=== PATIENT | male | born 1955 | race American Indian/Alaskan Native ===

== ENCOUNTER 2017-08-13 21:09 | Emergency (ER) | payer MEDICAID ==
[2017-08-13 22:51] LABS: Basophils % (Auto) 0.7 % (0.0-1.8); Eosinophils % (Auto) 0.6 % (0.0-4.3); Hematocrit 45.3 % (35.5-45.6); Hemoglobin 15.4 gm/dl (11.8-15.2); Lymphocytes # (Auto) 1.5 K/mm3 (1.2-5.4); Mean Corpuscular HGB Conc 34 % (32-34); Mean Corpuscular Hemoglobin 31 pg (28-32); Mean Corpuscular Volume 93 fl (84-94); Monocytes # (Auto) 0.3 K/mm3 (0.0-0.8); Platelet Count 397 K/mm3 (140-440); Red Cell Distribution Width 12.5 % (13.2-15.2)
[2017-08-13 22:58] LABS: BUN/Creatinine Ratio 10; Blood Urea Nitrogen 9 mg/dL (9-20); Calcium 9.1 mg/dL (8.4-10.2); Hemolysis Index 1
[2017-08-14 00:08] LABS: Bilirubin,Urine NEG (Negative); Blood,Urine NEG (Negative); Color,Urine Yellow (Yellow); Hyaline Casts,Urine 1 /LPF; Mucus,Urine FEW /HPF; Protein,Urine <15 mg/dL mg/dL (Negative); WBC,Urine < 1.0 /HPF (0.0-6.0)
[2017-08-14 00:24] LABS: Amphetamine Screen,Urine PRESUMPTIVE NEGATIVE; Benzodiazepines Screen,Urine PRESUMPTIVE NEGATIVE; Cannabinoid Screen,Urine PRESUMPTIVE NEGATIVE; Methadone Screen,Urine PRESUMPTIVE NEGATIVE; Opiate Screen,Urine PRESUMPTIVE NEGATIVE
[2017-08-14 00:40] LABS: Cocaine Screen,Urine PRESUMPTIVE POSITIVE
[2017-08-14 07:49] VITALS: BP 110/74
== END 2017-08-14 12:40 | disposition left against medical advice (07) ==
LOC: ED 21:09
DX: R20.0 Anesthesia of skin (principal); Z53.21 Procedure and treatment not carried out due to patient leaving prior to being seen by health care provider; Z79.899 Other long term (current) drug therapy
CPT/HCPCS: 36415; 80048; 80307; 81001; 85025; 93005; 93010; G0480; 80320

== ENCOUNTER 2017-08-14 13:33 | Emergency (ER) | payer MEDICAID ==
[2017-08-14] MEDS ORDERED: NACL 0.9% 1000 ML 1,000 ML IV ONE (17:53)
--- NOTE | 2017-08-14 17:55 | Emergency Department Report ---
Blank Doc - Documentation Documentation: Patient is a 62-year-old Male who was here yesterday for psych placement and not feeling well but eloped. Patient denies any homicidal suicidal ideations. Patient does state that he has a lot of nervousness as well as a numb sensation all over his body particularly his head. Patient states he's had a cough and loose stools for approximately week. The patient denies any vomiting fever. Patient states that he just feels like pins and needle sensation in throughout his body. Patient blood pressure was slightly low possibly from some dehydration secondary to his diarrhea. Patient also was positive for cocaine yesterday which may be a contributing factor. The patient will be moved to the main for further evaluation to
[2017-08-14 18:22] LABS: Basophils % (Auto) 0.7 % (0.0-1.8); Eosinophils # (Auto) 0.1 K/mm3 (0.0-0.4); Eosinophils % (Auto) 1.9 % (0.0-4.3); Hematocrit 41.7 % (35.5-45.6); Hemoglobin 14.2 gm/dl (11.8-15.2); Lymphocytes # (Auto) 1.6 K/mm3 (1.2-5.4); Mean Corpuscular HGB Conc 34 % (32-34); Mean Corpuscular Hemoglobin 31 pg (28-32); Mean Corpuscular Volume 93 fl (84-94); Monocytes # (Auto) 0.3 K/mm3 (0.0-0.8); Monocytes % (Auto) 5.9 % (0.0-7.3); Platelet Count 401 K/mm3 (140-440); Red Blood Count 4.51 M/mm3 (3.65-5.03); Red Cell Distribution Width 12.8 % (13.2-15.2)
[2017-08-14 18:41] LABS: BUN/Creatinine Ratio 11; Blood Urea Nitrogen 8 mg/dL (9-20); Calcium 9.1 mg/dL (8.4-10.2); Hemolysis Index 99
[2017-08-14] MEDS ORDERED: BENADRYL IV ONE (18:41)
[2017-08-14] MEDS ORDERED: REGLAN IV ONE (18:41)
[2017-08-14 18:43] LABS: Alanine Aminotransferase 15 units/L (7-56); Albumin 3.6 g/dL (3.9-5); Bilirubin,Direct < 0.2 mg/dL (0-0.2)
--- NOTE | 2017-08-14 18:48 | Emergency Department Report ---
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 Is also having a left-sided headache for the past 2 days and requesting pain medication. Patient was here yesterday to be seen prior to M.D. evaluation. Cocaine was positive at that time. Patient also states she was recently seen at [facility] and discharged. Patient states he is not taking any medications including aspirin. He admits to cocaine use 2 days ago. Patient apparently having diarrhea and productive cough without fever. Patient glucose was also elevated and yesterday's labs and he states he is a borderline diabetic and does not take medication - Related Data Previous Rx's Medication Instructions Recorded Last Taken Type Azithromycin [Zithromax Z-CHRYSTAL] 1 dose PO DAILY 5 Days tab 08/15/17 Unknown Rx Gabapentin [Neurontin] 300 mg PO Q8HR #90 capsule 08/15/17 Unknown Rx Allergies Allergy/AdvReac Type Severity Reaction Status Date / Time ibuprofen [From Motrin] AdvReac Nausea Verified 08/13/17 22:02 ED Review of Systems ROS: Stated complaint: NUMBNESS IN FINGERS/DRUG ADDICTION Other details as noted in HPI Comment: All other systems reviewed and negative ED Past Medical Hx - Past Medical History Previous Medical History?: Yes Hx CVA: Yes (BLOOD CLOT 06/2016-RESIDUAL LEFT-SIDE NUMBNESS) Hx Liver Disease: Yes (HEP C) Additional medical history: 2-3RD DEGREE 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 FT-1992,TIA AT [facility] IN 2017,MENINGITIS-AGE 7 - Surgical History Past Surgical History?: Yes Additional Surgical History: Throat surgery - Social History Smoking Status: Current Every Day Smoker Substance Use Type: Alcohol, Cocaine, Heroin, Marijuana - Medications Home Medications: Home Medications Medication Instructions Recorded Confirmed Last Taken Type Azithromycin [Zithromax Z-CHRYSTAL] 1 dose PO DAILY 5 Days tab 08/15/17 Unknown Rx Gabapentin [Neurontin] 300 mg PO Q8HR #90 capsule 08/15/17 Unknown Rx ED Physical Exam - General Limitations: No Limitations - Other Other exam information: General: No limitations, patient is alert in no acute distress Head exam: Atraumatic, normocephalic Eyes exam: Normal appearance, pupils equal reactive to light, extraocular movements intact ENT: Moist mucous membrane, normal oropharynx Neck exam: Normal inspection, full range of motion, no meningismus nontender Respiratory exam: Clear to auscultation bilateral, no wheezes, rales, crackles Cardiovascular: Normal rate and rhythm, normal heart sounds Abdomen: Soft, nondistended, and nontender, with normal bowel sounds, no rebound, or guarding Extremity: Full range of motion normal inspection no deformity Back: Normal Inspection, full range of motion, no tenderness Neurologic: Alert, oriented x3, cranial nerves intact, decrease sensation to touch to left face, left leg, and left arm which is chronic. 5/5 bilateral strength equal. Seat NIH stroke scale Psychiatric: normal affect, normal mood Skin: Warm, dry, intact ED Course Vital Signs 08/14/17 13:44 Temperature 98.1 F Pulse Rate 82 Respiratory 18 Rate Blood Pressure 103/71 O2 Sat by Pulse 94 Oximetry ED Medical Decision Making - Lab Data Result diagrams: 08/14/17 18:06 08/14/17 18:06 Lab Results 08/14/17 08/14/17 08/14/17 Range/Units 18:06 18:06 18:06 WBC 5.8 (4.5-11.0) K/mm3 RBC 4.51 (3.65-5.03) M/mm3 Hgb 14.2 (11.8-15.2) gm/dl Hct 41.7 (35.5-45.6) % MCV 93 (84-94) fl MCH 31 (28-32) pg MCHC 34 (32-34) % RDW 12.8 L (13.2-15.2) % Plt Count 401 (140-440) K/mm3 Lymph % (Auto) 28.0 (13.4-35.0) % [place] % (Auto) 5.9 (0.0-7.3) % Eos % (Auto) 1.9 (0.0-4.3) % Baso % (Auto) 0.7 (0.0-1.8) % Lymph # 1.6 (1.2-5.4) K/mm3 [place] # 0.3 (0.0-0.8) K/mm3 Eos # 0.1 (0.0-0.4) K/mm3 Baso # 0.0 (0.0-0.1) K/mm3 Seg Neutrophils % 63.5 (40.0-70.0) % Seg Neutrophils # 3.7 (1.8-7.7) K/mm3 Sodium 139 (137-145) mmol/L Potassium 4.5 D (3.6-5.0) mmol/L Chloride 98.5 (98-107) mmol/L Carbon Dioxide 25 (22-30) mmol/L Anion Gap 20 mmol/L BUN 8 L (9-20) mg/dL Creatinine 0.7 L (0.8-1.5) mg/dL Estimated GFR > 60 ml/min BUN/Creatinine Ratio 11 % Glucose 195 H (75-100) mg/dL Hemoglobin A1c (4-6) % Calcium 9.1 (8.4-10.2) mg/dL Magnesium 2.00 (1.7-2.3) mg/dL Total Bilirubin (0.1-1.2) mg/dL Direct Bilirubin (0-0.2) mg/dL Indirect Bilirubin mg/dL AST (5-40) units/L ALT (7-56) units/L Alkaline Phosphatase (35-129) units/L Total Creatine Kinase (55-170) units/L Total Protein (6.3-8.2) g/dL Albumin (3.9-5) g/dL Albumin/Globulin Ratio % Plasma/Serum Alcohol < 0.01 (0-0.07) % 08/14/17 08/14/17 08/14/17 Range/Units 18:06 18:12 18:12 WBC (4.5-11.0) K/mm3 RBC (3.65-5.03) M/mm3 Hgb (11.8-15.2) gm/dl Hct (35.5-45.6) % MCV (84-94) fl MCH (28-32) pg MCHC (32-34) % RDW (13.2-15.2) % Plt Count (140-440) K/mm3 Lymph % (Auto) (13.4-35.0) % [place] % (Auto) (0.0-7.3) % Eos % (Auto) (0.0-4.3) % Baso % (Auto) (0.0-1.8) % Lymph # (1.2-5.4) K/mm3 [place] # (0.0-0.8) K/mm3 Eos # (0.0-0.4) K/mm3 Baso # (0.0-0.1) K/mm3 Seg Neutrophils % (40.0-70.0) % Seg Neutrophils # (1.8-7.7) K/mm3 Sodium (137-145) mmol/L Potassium (3.6-5.0) mmol/L Chloride (98-107) mmol/L Carbon Dioxide (22-30) mmol/L Anion Gap mmol/L BUN (9-20) mg/dL Creatinine (0.8-1.5) mg/dL Estimated GFR ml/min BUN/Creatinine Ratio % Glucose (75-100) mg/dL Hemoglobin A1c 6.8 H (4-6) % Calcium (8.4-10.2) mg/dL Magnesium (1.7-2.3) mg/dL Total Bilirubin < 0.20 (0.1-1.2) mg/dL Direct Bilirubin < 0.2 (0-0.2) mg/dL Indirect Bilirubin 0.0 mg/dL AST 20 (5-40) units/L ALT 15 (7-56) units/L Alkaline Phosphatase 111 (35-129) units/L Total Creatine Kinase 86 (55-170) units/L Total Protein 7.3 (6.3-8.2) g/dL Albumin 3.6 L (3.9-5) g/dL Albumin/Globulin Ratio 1.0 % Plasma/Serum Alcohol (0-0.07) % - Radiology Data Radiology results: report reviewed READ BY RADIOLOGIST CXR PA AND LAT FINDINGS: Heart: Normal. Mediastinum/Vessels: Normal. Lungs/Pleural space: Mild reticular opacity at the left lung base. No effusion or pneumothorax. Bony thorax: No acute osseous abnormality. Other: IMPRESSION: Mild reticular opacity at the left lung base, may be related to early infiltrate. - Medical Decision Making COUGH/? POSSIBLE EARLY INFILTRATE Azithromycin given and will be continued Pt stable for outpatient treatment hyperglycemia known hx of borderline diabetes HGB A1C mildly elevated Rec outpatient MD follow up Left arm numbness/paresthesia chronic but increased last 2 days no weakness Neurontin will be prescribed but outpatient follow up will be continued cocaine abuse no signs of rhabdomylysis Homeless When patient told he was going to be discharged states he is afraid to go back on and can he go to [facility]. He then states he needs to go to [facility] for heroin and cocaine addiction. I informed him that this is an outpatient treatment and will provided referral. - Differential Diagnosis paresthesias, herniated disc, previous CVA, substance abuse Critical Care Time: No Critical care attestation.: If time is entered above; I have spent that time in minutes in the direct care of this critically ill patient, excluding procedure time. ED Disposition Clinical Impression: Pneumonia, History of CVA with residual deficit, Arm paresthesia, left, Homeless, Borderline diabetes, Cocaine abuse Disposition: TO HOME OR SELFCARE Is pt being admited?: No Does the pt Need Aspirin: No Condition: Stable Instructions: Community-acquired Pneumonia (ED), How to Check Your Blood Sugar (ED), Paresthesia (ED), Cocaine (On the skin) Additional Instructions: Take the medication as prescribed. It is very important that you follow up with primary care doctor for further evaluation of your borderline diabetes and possible pneumonia. Follow with [facility] or referral was for help with substance abuse/addiction Prescriptions: Azithromycin [Zithromax Z-CHRYSTAL] 1 dose PO DAILY 5 Days tab Gabapentin [Neurontin] 300 mg PO Q8HR #90 capsule Referrals: PRIMARY MD REYNALDO [Primary Care Provider] - 3-5 Days [facility] [Provider Group] - 3-5 Days [facility] [Outside] - 3-5 Days MD Adrian [Other] - 3-5 Days Time of Disposition: 01:03 - Assessment Assessment Interval: Baseline - Level of Consciousness 1a. Level of Consciousness: alert - LOC Questions 1b. LOC Questions: answers correctly - LOC Command 1c. LOC Commands: performs tasks correctly - Best Gaze 2. Best Gaze: normal - Visual 3. Visual: no visual loss - Facial Palsy 4. Facial Palsy: normal symmetrical movement - Motor Arm 5b. Motor Arm Right: no drift 5a. Motor Arm Left: no drift - Motor Leg 6a. Motor Leg Left: no drift 6b. Motor Leg Right: no drift - Limb Ataxia 7. Limb Ataxia: absent - Sensory 8. Sensory: mild/moderate sensory loss (chronic) - Best Language 9. Best Language: no aphasia - Dysarthria 10. Dysarthria: normal - Extinction and Inattention 11. Extinction/Inattention: no abnormality - Scoring Total Score: 1 Stroke Severity: Minor Stroke
--- NOTE | 2017-08-14 20:32 | XRay Report ---
FINAL REPORT PROCEDURE: XR CHEST ROUTINE 2V TECHNIQUE: PA and lateral chest radiographs were obtained. CPT 29319 HISTORY: cough COMPARISON: No prior studies are available for comparison. FINDINGS: Heart: Normal. Mediastinum/Vessels: Normal. Lungs/Pleural space: Mild reticular opacity at the left lung base. No effusion or pneumothorax. Bony thorax: No acute osseous abnormality. Other: IMPRESSION: Mild reticular opacity at the left lung base, may be related to early infiltrate.
[2017-08-14] MEDS ORDERED: ZITHROMAX PO ONE (21:17)
[2017-08-15 01:41] VITALS: BP 103/74
== END 2017-08-15 01:44 | disposition home or self-care (01) ==
LOC: ED 13:33
DX: J18.9 Pneumonia, unspecified organism (principal); F14.10 Cocaine abuse, uncomplicated; R20.2 Paresthesia of skin; F17.200 Nicotine dependence, unspecified, uncomplicated; F12.10 Cannabis abuse, uncomplicated; F11.10 Opioid abuse, uncomplicated; Z86.73 Personal history of transient ischemic attack (TIA), and cerebral infarction without residual deficits
CPT/HCPCS: 36415; 71046; 80048; 80074; 82550; 83036; 83735; 85025; 96361; 96374; 96375; 99284; G0480; J1200; J2765; J7030; 80320